=== PATIENT | female | born 1945 | race Caucasian/White ===

== ENCOUNTER 2019-05-28 02:57 | Emergency (ER) | payer OTHER ==
[~2019-05-28] VITALS: Ht 162.6 cm; Wt 56.7 kg
[~2019-05-28 02:57] MED LIST: ASCO500T9 PO; ASPI-605 PO; CALC500T52 PO; CHOL100044 PO; DILT180C87 PO; DRON400T2 PO; LEVO100T9 PO; MULT-24 PO; MYRBETRIQ PO; OMEG-143 PO
--- NOTE | 2019-05-28 03:05 | NUR ---
TO BED 2 BIB EMS C/O FEELING UNBALANCED AND DEHYDRATED PER PT REPORT. PT STATES "I NORMALLY DRINK SIPS OF WATER SO I WONT GET DEHYDRATED BUT YESTERDAY I WASNT ABLE TO DRINK BACAUSE OF THE CONSTRUCTION GOING ON AT OUR HOUSE". PT AAOX4 NO ACUTE DISTRESS NOTED, RESP EVEN AND UNLABORED. PLACE PT ON CARDIAC MONITORING, CONTINUOUS POX. PENDING ER MD LEVI.
[2019-05-28] MEDS ORDERED: IV NS 0.9% 1,000 ML BAG IV ONE (03:30)
[2019-05-28 03:46] LABS: BASOPHILS % (AUTO) 0.6 % (0.0-2.0); CALCIUM, SERUM 8.7 mg/dL (8.5-10.1); CARBON DIOXIDE 29 mmol/L (21-32); CHLORIDE 97 mmol/L (98-107); CREATININE 0.8 mg/dL (0.6-1.3); EOSINOPHILS % (AUTO) 3.2 % (0.0-6.0); GLUCOSE 111 mg/dL (74-106); HEMATOCRIT 43 % (33-45); HEMOGLOBIN 14.8 g/dL (11.5-14.8); LYMPHOCYTES # (AUTO) 1.6 /CMM (0.8-4.8); LYMPHOCYTES % (AUTO) 31.2 % (20.0-44.0); MEAN CORPUSCULAR HGB CONC 34 g/dl (31.0-36.0); MEAN CORPUSCULAR VOLUME 94 fL (82-100); MONOCYTES # (AUTO) 0.3 /CMM (0.1-1.30); MONOCYTES % (AUTO) 6.7 % (2.0-12.0); NEUTROPHILS % (AUTO) 58.3 % (43.0-81.0); PLATELET COUNT (AUTO) 245 /CMM (150-450); RED BLOOD CELL COUNT(AUTO) 4.59 MIL/uL (4.0-5.2); SODIUM SERUM 132 mmol/L (136-145); UREA NITROGEN, BLOOD 25 mg/dL (7-18); WHITE BLOOD COUNT (AUTO) 5.1 K/uL (4.3-11.0)
--- NOTE | 2019-05-28 05:06 | NUR ---
Patient discharged to home in stable condition. Written and verbal after care instructions given. Patient verbalizes understanding of instruction. IV removed. Catheter intact and site benign. Pressure and 4x4 applied to site. No bleeding noted. ambulatory with a steady gait noted. pt aaox4 no acute distres snoted, resp even and unlabored. pt verbalize understanding. Pt at bedside to take pt home.
[2019-05-28 05:08] VITALS: BP 139/73
== END 2019-05-28 05:08 | disposition home or self-care (01) ==
LOC: ER 02:59
DX: F41.9 Anxiety disorder, unspecified (principal); I48.91 Unspecified atrial fibrillation; Z98.890 Other specified postprocedural states; Z79.899 Other long term (current) drug therapy; Z79.82 Long term (current) use of aspirin
CPT/HCPCS: 36415; 80048; 85025; 99283; J7030

== ENCOUNTER 2019-06-06 20:12 | Emergency (ER) | payer OTHER ==
[~2019-06-06] VITALS: Ht 162.6 cm; Wt 56.7 kg
--- NOTE | 2019-06-06 20:20 | NUR ---
PT [id number] C/O DIZZINESS/ANXIETY X 1 HR. PT AXO4. RESPIRATIONS EVEN AND UNLABORED. PT PUT ON THE [employer] EXTRACTOR AND PULSE OX. WILL CONTINUE TO MONITOR.
[2019-06-06 21:17] LABS: EOSINOPHILS % (AUTO) 3.6 % (0.0-6.0); HEMATOCRIT 44 % (33-45); HEMOGLOBIN 14.8 g/dL (11.5-14.8); LYMPHOCYTES # (AUTO) 1.4 /CMM (0.8-4.8); LYMPHOCYTES % (AUTO) 35.1 % (20.0-44.0); MEAN CORPUSCULAR HGB CONC 33 g/dl (31.0-36.0); MEAN CORPUSCULAR VOLUME 93 fL (82-100); MONOCYTES # (AUTO) 0.2 /CMM (0.1-1.30); MONOCYTES % (AUTO) 6.1 % (2.0-12.0); NEUTROPHILS # (AUTO) 2.1 /CMM (1.8-8.9); NEUTROPHILS % (AUTO) 54.2 % (43.0-81.0); PLATELET COUNT (AUTO) 239 /CMM (150-450); RED BLOOD CELL COUNT(AUTO) 4.76 MIL/uL (4.0-5.2)
--- NOTE | 2019-06-06 21:30 | NUR ---
PT AMBULATORY WITH STEADY GAIT TO RESTROOM. URINE SAMPLE OBTAINED AND SENT TO LAB.
[2019-06-06 21:32] LABS: CARBON DIOXIDE 26 mmol/L (21-32); CHLORIDE 95 mmol/L (98-107); CREATININE 0.7 mg/dL (0.6-1.3); GLUCOSE 97 mg/dL (74-106); POTASSIUM 4.2 mmol/L (3.5-5.1); SODIUM SERUM 133 mmol/L (136-145); UREA NITROGEN, BLOOD 11 mg/dL (7-18)
[2019-06-06 22:11] VITALS: BP 125/78
[2019-06-06 22:14] LABS: APPEARANCE,URINE Clear (CLEAR); BILIRUBIN,URINE Negative (NEGATIVE); BLOOD, URINE Negative Ery/uL (NEGATIVE); COLOR,URINE Yellow (YELLOW); KETONES,URINE Negative (NEGATIVE); LEUKOCYTE ESTERASE ,URINE Negative (NEGATIVE); NITRITE, URINE Negative (NEGATIVE); PH,URINE 7.5 (5.0-8.0); PROTEIN,URINE Negative (NEGATIVE); UGLUCOSE Negative (NEGATIVE); UROBILINOGEN,URINE 0.2 EU/dL (0.2)
--- NOTE | 2019-06-06 22:48 | NUR ---
PT RESTING IN BED, NAD NOTED. WILL CONTINUE TO MONITOR.
--- NOTE | 2019-06-07 00:01 | NUR ---
PT ACCEPTED TO [facility], ROOM 4422. # FOR REPORT [phone]
--- NOTE | 2019-06-07 00:04 | NUR ---
[facility] CALLED FOR TRANSPORT. ETA 30 MIN. TRIP#[id number]
--- NOTE | 2019-06-07 00:37 | NUR ---
PT RESTING IN BED, NAD NOTED. WILL CONTINUE TO MONITOR.
--- NOTE | 2019-06-07 01:00 | NUR ---
REPORT GIVEN TO GINNY CHANDLER AT [facility] FOR [facility].
--- NOTE | 2019-06-07 01:00 | NUR ---
REPORT GIVEN TO [facility] FOR TRANSPORT.
== END 2019-06-07 02:01 | disposition short-term general hospital (02) ==
LOC: ER 20:13
DX: R55 Syncope and collapse (principal); F41.9 Anxiety disorder, unspecified; I48.91 Unspecified atrial fibrillation; E03.9 Hypothyroidism, unspecified; G30.9 Alzheimer's disease, unspecified; Z98.890 Other specified postprocedural states; Z79.82 Long term (current) use of aspirin
CPT/HCPCS: 36415; 71045-TC; 80048-TC; 81000-TC; 83735-TC; 84484-TC; 85025-TC; 87081-TC